=== PATIENT | female | born 1960 | race Caucasian/White ===

== ENCOUNTER 2017-07-18 12:47 | Emergency (ER) | payer BC ==
[~2017-07-18] VITALS: Ht 162.6 cm; Wt 58.5 kg
[2017-07-18 12:58] VITALS: Ht 162.6 cm; Wt 58.5 kg
[2017-07-18 15:21] LABS: BASOPHIL % 0.3 % (0-2); PLATELET COUNT 209 x10^3mcL (130-400); RED CELL DISTRIBUTION WIDTH 13.1 % (11.5-14.5)
[2017-07-18 15:29] LABS: CALCIUM 9.1 mg/dL (8.5-10.1); CARBON DIOXIDE 30.3 mmol/L (21-32); CHLORIDE SERUM 99 mmol/L (98-107); CREATININE SERUM 0.9 mg/dL (0.6-1.0); GFR1 > 60 mL/min; GLUCOSE SERUM 328 mg/dL (74-106); POTASSIUM SERUM 4.4 mmol/L (3.5-5.1); SODIUM SERUM 137 mmol/L (136-145)
[2017-07-18 15:37] LABS: ALKALINE PHOSPHATASE 97 U/L (46-116); ALT/SGPT 38 U/L (14-59); AST/SGOT 14 U/L (15-37); BILIRUBIN TOTAL 0.5 mg/dL (0.20-1.00); LIPASE 94 IU/L (73-393); TOTAL PROTEIN, SERUM 7.6 g/dL (6.4-8.2)
[2017-07-18 15:44] LABS: AMYLASE 24 U/L (25-115)
[2017-07-18 17:32] VITALS: BP 152/76
== END 2017-07-18 17:32 | disposition home or self-care (01) ==
LOC: ED 12:47
PROVIDERS: Emergency Medicine
DX: E11.65 Type 2 diabetes mellitus with hyperglycemia (principal); R07.9 Chest pain, unspecified; I10 Essential (primary) hypertension; Z88.0 Allergy status to penicillin
CPT/HCPCS: 83880; J2405; J3490

== ENCOUNTER 2018-03-28 16:53 | Inpatient (IN) | payer BC ==
[~2018-03-28] VITALS: Ht 162.6 cm; Wt 54.9 kg
[2018-03-28 17:30] LABS: BASOPHIL % 0.3 % (0-2); PLATELET COUNT 199 x10^3mcL (130-400); RED CELL DISTRIBUTION WIDTH 13.4 % (11.5-14.5)
[2018-03-28 17:49] LABS: CALCIUM 8.9 mg/dL (8.5-10.1); CARBON DIOXIDE 28.3 mmol/L (21-32); CHLORIDE SERUM 101 mmol/L (98-107); CREATININE SERUM 0.9 mg/dL (0.6-1.0); GFR1 > 60 mL/min; GLUCOSE SERUM 246 mg/dL (74-106); POTASSIUM SERUM 3.6 mmol/L (3.5-5.1); SODIUM SERUM 139 mmol/L (136-145)
[2018-03-28 17:55] LABS: ALBUMIN 3.8 g/dL (3.4-5.0); ALKALINE PHOSPHATASE 81 U/L (46-116); ALT/SGPT 19 U/L (14-59); AST/SGOT 12 U/L (15-37); BILIRUBIN TOTAL 0.29 mg/dL (0.20-1.00); TOTAL PROTEIN, SERUM 7.6 g/dL (6.4-8.2)
[2018-03-28] MEDS ORDERED: JARDIANCE10 MG PO (18:03)
[2018-03-28] MEDS ORDERED: METFORMIN HCL1000 MG PO (18:03)
[2018-03-28] MEDS ORDERED: BENAZEPRIL HYDR20 M1 PO (18:04)
[2018-03-28] MEDS ORDERED: ACT30 (18:04)
[2018-03-28 19:30] LABS: MAGNESIUM 1.5 mg/dL (1.8-2.4)
[2018-03-28 19:31] LABS: CHOLESTEROL/HDL RATIO 2.4
[2018-03-28 20:45] VITALS: BP 163/83
[2018-03-28 22:50] LABS: microscopic required? NO
[2018-03-28 22:54] LABS: urine erythrocyte NEGATIVE (NEGATIVE)
[2018-03-28 23:10] LABS: AMPHETAMINE QUAL UR NONE DETECTED (See below)
[2018-03-29 05:50] VITALS: BP 137/80
[2018-03-29 06:45] LABS: BASOPHIL % 0.3 % (0-2); CALCIUM 9.1 mg/dL (8.5-10.1); CARBON DIOXIDE 27.9 mmol/L (21-32); CHLORIDE SERUM 103 mmol/L (98-107); CREATININE SERUM 0.7 mg/dL (0.6-1.0); GFR1 > 60 mL/min; GLUCOSE SERUM 133 mg/dL (74-106); MAGNESIUM 1.9 mg/dL (1.8-2.4); PHOSPHOROUS 3.4 mg/dL (2.5-4.9); PLATELET COUNT 198 x10^3mcL (130-400); POTASSIUM SERUM 3.7 mmol/L (3.5-5.1); RED CELL DISTRIBUTION WIDTH 13.2 % (11.5-14.5); SODIUM SERUM 139 mmol/L (136-145)
[2018-03-29 09:02] VITALS: BP 132/77
[2018-03-29 12:21] VITALS: BP 166/85
[2018-03-29 17:39] VITALS: BP 134/80
[2018-03-29 21:00] VITALS: BP 126/84
[2018-03-30 05:37] VITALS: BP 131/85
[2018-03-30 06:55] LABS: BASOPHIL % 0.3 % (0-2); PLATELET COUNT 187 x10^3mcL (130-400); RED CELL DISTRIBUTION WIDTH 13.4 % (11.5-14.5)
[2018-03-30 07:17] LABS: CARBON DIOXIDE 24.8 mmol/L (21-32); CHLORIDE SERUM 105 mmol/L (98-107); CREATININE SERUM 0.6 mg/dL (0.6-1.0); GFR1 > 60 mL/min; GLUCOSE SERUM 127 mg/dL (74-106); POTASSIUM SERUM 3.9 mmol/L (3.5-5.1); SODIUM SERUM 137 mmol/L (136-145)
[2018-03-30 09:28] VITALS: BP 121/73
[2018-03-30 12:59] VITALS: BP 172/87
[2018-03-30 17:34] VITALS: BP 152/89
[2018-03-30 18:49] VITALS: BP 152/89
== END 2018-03-30 20:30 | disposition home or self-care (01) | DRG 205 ==
LOC: ED 16:53 → DU 18:52
PROVIDERS: Emergency Medicine; General Practice; ADMIT Family Medicine
DX: M94.0 Chondrocostal junction syndrome [Tietze] (principal); N17.0 Acute kidney failure with tubular necrosis; E11.65 Type 2 diabetes mellitus with hyperglycemia; E83.42 Hypomagnesemia; I10 Essential (primary) hypertension; Z90.710 Acquired absence of both cervix and uterus; Z88.0 Allergy status to penicillin; Z83.3 Family history of diabetes mellitus
CPT/HCPCS: 82962; 83880; J1815; J2765; J3475; J7030; Q0092